=== PATIENT | female | born 1990 | race Caucasian/White ===

== ENCOUNTER 2020-07-06 22:03 | Emergency (ER) | payer MEDICAID ==
[~2020-07-06] VITALS: Ht 170.2 cm; Wt 58.0 kg
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
--- NOTE | 2020-07-06 22:24 | NUR ---
sitter at doorway for SI precautions
[2020-07-06 23:00] LABS: MEAN CORPUSCULAR HEMOGLOBIN 31.5 pg (27.0-34.8); MEAN CORPUSCULAR HGB CONC 33.3 g/dL (32.4-35.8); MEAN PLATELET VOLUME 7.8 fL (7.4-10.4); PLATELET COUNT 224 x10^3/uL (130-400); RED BLOOD COUNT 4.07 x10^6/uL (3.82-5.3); RED CELL DISTRIBUTION WIDTH 13.5 % (9.6-15.2)
[2020-07-06 23:12] LABS: ALBUMIN 3.2 g/dL (3.4-5.0); ANION GAP 6 mmol/L (5-15); CHLORIDE 106 mmol/L (98-107); CREATININE 0.81 mg/dL (0.55-1.02)
[2020-07-06 23:14] LABS: SALICYLATE LEVEL < 1.7 mg/dL (2.8-20.0)
--- NOTE | 2020-07-06 23:59 | NUR ---
all personal belongings placed in locker, SI precautions in place including sitter at doorway. pt unable to produce urine at this time
--- NOTE | 2020-07-07 | NUR ---
PT STATES SHE IS NOT ABLE TO PROVIDE URINE SAMPLE.
[2020-07-07 00:14] LABS: MD YES
[2020-07-07 00:17] LABS: BANDS%(MANUAL) 1 % (0-7); EOS#(MANUAL) 2.27 x10^3/uL (0.0-0.4); EOS% (MANUAL) 22 % (1-7); LYMPH#(MANUAL) 1.13 x10^3/uL (1-3.4); LYMPHS% (MANUAL) 11 % (22-44); MONOS#(MANUAL) 0.21 x10^3/uL (0.3-2.7); MONOS% (MANUAL) 2 % (2-9); REACTIVE LYMPHS % (MANUAL) 1 % (0-0); SEG#(MANUAL) 6.49 x10^3/uL (1.8-6.8); SEGS% (MANUAL) 63 % (42-75)
[2020-07-07 00:18] LABS: <PLATELET ESTIMATE> ADEQUATE; <PLT MORPHOLOGY> NORMAL PLT MORPH; <RBC MORPHOLOGY> NORMAL
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
--- NOTE | 2020-07-07 02:44 | NUR ---
PT STATES SHE IS STILL UNABLE TO URINATE. WHEN ASKED IF SHE WILL GO TO THE BATHROOM AND PROVIDE A SAMPLE, SHE STATES "THERE ARE TOO MANY PEOPLE AFTER ME. I JUST NEED TO SIT HERE ALONE"
[2020-07-07] MEDS ORDERED: LORazepam 1MG TABLET ONE (03:08)
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
[2020-07-07 03:12] LABS: MICROSCOPIC NOT IND
[2020-07-07 03:25] LABS: AMPHETAMINE SCREEN, URINE Positive (Negative); BARBITURATE SCREEN, URINE Negative (Negative); BENZODIAZEPINE SCREEN, URINE Negative (Negative); CANNABINOID SCREEN, URINE Negative (Negative); COCAINE SCREEN, URINE Negative (Negative); METHADONE SCREEN, URINE Negative (Negative); OPIATE SCREEN, URINE Negative (Negative)
--- NOTE | 2020-07-07 03:28 | NUR ---
pt ran out of ambulance bay. stopped by security in parking lot. pt given geodon and educated again that she much stay in her room. AMMY dominguez requests pt not be restrained.
[2020-07-07] MEDS ORDERED: LORazepam 1MG TABLET PO ONE (03:30)
[2020-07-07] MEDS ORDERED: ZIPRASIDONE 20 MG INJ IM ONE (03:30)
--- NOTE | 2020-07-07 03:34 | NUR ---
pt placed on l2k by alberto and dr ovalle
--- NOTE | 2020-07-07 04:14 | NUR ---
pt in and out of bed. still pacing in room. not attempting to leave.
--- NOTE | 2020-07-07 05:54 | NUR ---
MT: PSYCH PACKET SENT TO [facility].
--- NOTE | 2020-07-07 06:47 | NUR ---
PT RESTING ON GURNEY. EYES CLOSED, RESP EVEN AND UNLABORED. SITTER AT DOORWAY FOR FREQUENT CHECKS.
--- NOTE | 2020-07-07 07:04 | NUR ---
RECEIVED REPORT FROM NILA COTTON RN'S. PT RESTING ON BORISRGERTRUDE. FE. ROOM REMAINS SECURE. SITTER REMAINS AT BEDSIDE. HOSPITAL BED ORDERED.
[2020-07-07] MEDS: PLEASE ENTER ALLERGIES MC SCH ×3 (08:24→19:42)
--- NOTE | 2020-07-07 08:48 | NUR ---
PT RESTING ON DANNY. FE. VSS. SITTER REMAINS AT BEDSIDE. ROOM REMAINS SECURE. PT PROVIDED W/ SI BREAKFAST TRAY.
--- NOTE | 2020-07-07 09:30 | NUR ---
PT RESTING ON DANNY. FE. SITTER REMAINS AT BEDSIDE. ROOM REMAINS SECURE.
--- NOTE | 2020-07-07 10:07 | NUR ---
BREAK RN: PT OOB TO SIT IN CHAIR. HOSPITAL BED IN ROOM, PT PLACED IN CLEAN GOWN, CLEAN UNDERPANTS AND NEW NON-SLIP SOCKS PROVIDED. PT CALM AND COOPERATIVE. RTD TO BED W/O INCIDENT, CALL LIGHT W/I REACH, ROOM SECURE AND SITTER AT DOORWAY WITH PT IN VIEW.
--- NOTE | 2020-07-07 10:23 | NUR ---
PT RESTING IN BED. NADN. SITTER REMAINS AT BEDSIDE. ROOM REMAINS SECURE.
--- NOTE | 2020-07-07 10:58 | NUR ---
REPORT GIVEN TO PAWAN TIWARI.
--- NOTE | 2020-07-07 11:26 | NUR ---
PT RESTING COMFORTABLY ON HOSPITAL BED. RESP EVEN AND UNLABORED. PT IN DIRECT SIGHT OF SITTER.
--- NOTE | 2020-07-07 12:19 | NUR ---
DIET TRAY DELIVERED. PT APPRECIATIVE. PT IN DIRECT SIGHT OF SITTER.
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
--- NOTE | 2020-07-07 15:30 | NUR ---
PT RESTING COMFORTABLY ON GURNEY. RESP EVEN AND UNLABORED. PT IN DIRECT SIGHT OF SITTER.
--- NOTE | 2020-07-07 17:28 | NUR ---
PT RESTING COMFORTABLY ON GURNEY. RESP EVEN AND UNLABORED. PT IN DIRECT SIGHT OF SITTER.
[2020-07-07] MEDS ORDERED: ARIPIPRAZOLE 10 MG TABLET PO SCH (19:00)
[2020-07-07] MEDS ORDERED: HALOPERIDOL 5 MG/ML IM PRN (19:00)
--- NOTE | 2020-07-07 19:00 | NUR ---
PT RESTING COMFORTABLY ON GURNEY. RESP EVEN AND UNLABORED. PT IN DIRECT SIGHT OF SITTER.
[2020-07-07] MEDS ORDERED: ARIPIPRAZOLE 10 MG TABLET ONE (19:32)
[2020-07-07] MEDS ORDERED: TRAZODONE 100MG TABLET ONE (19:32)
--- NOTE | 2020-07-07 19:42 | NUR ---
MEDS ADMIN PER NOV. PT REQUESTED TRAZODONE TO HELP SLEEP. PT GIVEN SNACKS. PT IN DIRECT SIGHT OF SITTER.
[2020-07-07] MEDS ORDERED: TRAZODONE 100MG TABLET PO PRN (21:00)
--- NOTE | 2020-07-07 21:18 | NUR ---
PT RESTING COMFORTABLY ON GURNEY. RESP EVEN AND UNLABORED. PT IN DIRECT SIGHT OF SITTER.
--- NOTE | 2020-07-07 23:00 | NUR ---
REPORT GIVEN TO AUDELIA VILLALTA.
--- NOTE | 2020-07-08 00:05 | NUR ---
PT STILL RESTING IN ROOM PA REPORTS PT REQUESTING FOOD, PT PROVIDED WITH SNACKS AT THIS TIME. SITTER REMAINS IN HALLWAY FOR SAFETY
[2020-07-08 00:19] VITALS: BP 102/64
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
--- NOTE | 2020-07-08 01:59 | NUR ---
PT UP TO RESTROOM STEADY GAIT WITH SITTER AT DOOR, NO NEEDS AT THIS TIME
--- NOTE | 2020-07-08 02:31 | NUR ---
PT RESTING ON HOSPITAL BED, SITTER IN HALLWAY AT THIS TIME
--- NOTE | 2020-07-08 03:08 | NUR ---
PT RESTING ON HOSPITAL BED FE TOURE IN [facility]
--- NOTE | 2020-07-08 04:34 | NUR ---
pt becoming aggitated in room laying in bed shouting at the voices she hears. not combative with staff at this time.
--- NOTE | 2020-07-08 05:35 | NUR ---
pt tolerating medication well now sleeping paola tariq in [facility], report to Umair
--- NOTE | 2020-07-08 06:18 | NUR ---
Pt yelling out, "they're under my skin. The philipinos are crawling under my skin. I can't get them out. Maybe if I eat something they'll get out but they just keep crawling under my skin." OOB walking around room, steady gait. Provided pt with snack, pt returned to bed without incident. Sitter remains at bedside.
--- NOTE | 2020-07-08 07:14 | NUR ---
SBAR HAND-OFF REPORT RECEIVED FROM PAWAN STROUD. ASSUMING CARE OF PATIENT.
--- NOTE | 2020-07-08 07:35 | NUR ---
BREAKFAST TRAY ORDERED FOR PATIENT. PT SLEEPING AT THIS TIME AND REMAINS UNDER CONSTANT SUPERVISION OF SITTER AND REMAINS SAFE.
--- NOTE | 2020-07-08 10:11 | NUR ---
REPORT FROM LIZZIE VILLALTA, PT MOVED TO ROOM 1
--- NOTE | 2020-07-08 12:00 | NUR ---
PT INCREASINGLY AGITATED, OFFERED HYDROXIZINE AND PT TOOK COOPERATIVELY. STATES "THEY'RE UNDER MY SKIN AND MESSING WITH MY STOMACH WITH COMPUTERS", PT OFFERED FOOD AND REQUESTED SODA ONLY, REFUSING MEAL TRAY. PT GIVEN HAYLEY MIST. PT RESING AND COOPERATIVE AT THIS TIME
--- NOTE | 2020-07-08 12:34 | NUR ---
REPORT TO ARANZA VILLALTA AT [facility]
--- NOTE | 2020-07-08 13:54 | NUR ---
PT TO [facility] WITH [facility], 3 BAGS OF BELONGINGS TAKEN WITH HER. PT AMBULATED WITH STEADY GAIT
== END 2020-07-08 13:55 ==
LOC: ED 22:31
DX: R45.851 Suicidal ideations (principal); F15.159 Other stimulant abuse with stimulant-induced psychotic disorder, unspecified; F20.0 Paranoid schizophrenia
CPT/HCPCS: 36415; 80048; 80307; 81003; 82040; 84703; 85025; 96372; 99285; J3486; 99284